=== PATIENT | female | born 1980 | race Caucasian/White ===

== ENCOUNTER 2019-06-11 03:22 | Emergency (ER) | payer SELFPAY ==
[~2019-06-11] VITALS: Ht 160 cm; Wt 106.0 kg
[2019-06-11] MEDS ORDERED: DIAZEPAM 5 MG TABLET PO ONE (04:15)
[2019-06-11] MEDS ORDERED: HYDROCODONE/ACETAMINOPHEN 5/325MG TABLET PO ONE (05:30)
[2019-06-11 06:10] VITALS: BP 116/72
== END 2019-06-11 06:10 | disposition home or self-care (01) ==
LOC: ER 03:33
DX: M54.5 Low back pain (principal); Z91.81 History of falling
CPT/HCPCS: 99283